=== PATIENT | male | born 1985 | race Caucasian/White ===

== ENCOUNTER 2023-01-03 16:45 | Emergency (ER) | payer OTHER ==
[2023-01-03 16:54] VITALS: BP 129/79
--- NOTE | 2023-01-03 16:54 | ED Upper Extremity ---
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 The tip of the finger was sliced off with the nail appearing broken. Denies sensory loss. Patient is able to move his fingers around. Patient is right-hand dominant. Allergies and Home Medications Allergies Coded Allergies: No Known Drug Allergies (Unverified , 01/03/23) Patient Home Medication List Home Medication List Reviewed: Yes Amoxicillin (Amoxicillin) 875 Mg Tablet, 875 MG PO BID Prescribed by: ROCCO GORDON MD on 01/03/23 5476 Review of Systems Constitutional: no symptoms reported Musculoskeletal: see HPI, other Physical Exam Vital Signs Vital Signs - First Documented 01/03/23 16:54 Temp 36.8 Pulse 74 Resp 16 B/P (MAP) 129/79 (96) Pulse Ox 99 O2 Delivery Room Air Capillary Refill : Height, Weight, BMI Height: '" Weight: lbs. oz. kg; BMI Method: General Appearance: WD/WN, no apparent distress Hand: normal ROM, Right, laceration (Palmar surface of the middle right finger tip appears sliced off. Fingernail appears broken but nailbed intact. Hand is greasy, dirty wound. Unrestricted ROM. N/V bundle intact), nail injury Neurologic/Tendon: normal sensation, normal motor functions Neurologic/Psychiatric: no motor/sensory deficits, alert, oriented x 3 Skin: normal color Progress/Results/Core Measures Results/Orders My Orders Orders - ROCCO GORDON MD Finger(S) (01/03/23 16:57) Dipht/Pertuss(Acell)/Tet Adult (Dipht/Pe (01/03/23 17:00) Amoxicillin/Clavulanate Tablet (Amoxicil (01/03/23 16:59) Amoxicillin/Clavulanate Tablet (Amoxicil (01/03/23 17:02) Dipht/Pertuss(Acell)/Tet Adult (Dipht/Pe (01/03/23 17:02) Bacitracin Ointment (Bacitracin Ointment (01/03/23 17:33) Medications Given in ED Current Medications Medications Dose Ordered Sig/Michelle Route Start Time Stop Time Status Last Admin Dose Admin Diphtheria/ Tetanus/Acell Pertussis 0.5 ml ONCE ONCE IM 01/03/23 17:00 01/03/23 17:01 DC 01/03/23 17:08 0.5 ML Vital Signs/I&O 01/03/23 16:54 Temp 36.8 Pulse 74 Resp 16 B/P (MAP) 129/79 (96) Pulse Ox 99 O2 Delivery Room Air Progress Progress Note : Progress Note RIGHT MIDDLE FINGER LACERATION: - XRAY RIGHT MIDDLE FINGER: Partial soft tissue amputation of the distal 3rd finger with no fractures identified. - Wound was irrigated and cleaned with sterile water and chlorhexidine, no foreign body seen, however wound is dirty with grease, and it was cleaned. Debridement of tissue done and Lido pressure dressing applied with antibi toic ointment. Digital block as well as direct injection into the wound done with 50% 1% lido and 50% lido with epi, for a total of 10 ml injected, with good pain control/ relief. Tube gauze placed after antibiotic ointment. - Augmentin 875mg STAT - Tdap vaccine given in ER - Prescription for Augmentin bid for 10 days - Advised Naproxen gel capsules 440mg every 12 hours for pain, with Tylenol 650mg every 4 hours. - Ice application - Wound care instructions with daily wound dressing advised - Follow up with PCP for wound care follow up in 7 days. -The patient was seen in the ED, and treated appropriately to presentation at a specific point in time. Patient is informed that there is a possibility that disease and illness can evolve and change in acuity rapidly or slowly after patient is discharged from the ER. Precautionary advice given to the patient for immediate return to ER if symptoms worsen or do not resolve, and to seek emergency care sooner rather than later. Pt also advised on the importance of PCP follow up and compliance with management and follow up plan with PCP and/or specialist, as this is part of the management plan. Pt verbally expressed understanding. Diagnostic Imaging Diagonstic Imaging: Xray Plain Films/CT/US/NM/MRI: hand Comments [facility]. [place], [place] NAME: YVAN LEE [facility] REC#: [id number] PT STATUS: REG ER : 1985 PHYSICIAN: ROCCO GORDON MD ADMIT DATE: 01/03/23/ER FS Draft Date of Exam:01/03/23 FINGER(S) INDICATION: Laceration to the 3rd finger EXAMINATION: Right 3rd finger 01/03/2023 FINDINGS: Four views of the hand and finger There is a soft tissue deformity with partial amputation of the distal tip of the 3rd finger which involves soft tissues only. No fractures or dislocations. No radiopaque foreign bodies. Subcutaneous air noted. IMPRESSION: 1. Partial soft tissue amputation of the distal 3rd finger with no fractures identified. Dictated on workstation # [id number] Dict: 01/03/23 1716 Trans: 01/03/23 1720 [facility] [id number] Interpreted by: CORWIN FLORES MD Electronically signed by: Departure Impression Primary Impression: Laceration of right middle finger Disposition: HOME, SELF-CARE Condition: Improved Departure-Patient Inst. Referrals: MUNIRA BRIZUELA DO (PCP) Primary Care Physician Patient Instructions: Wound Care (DC), SKIN AVULSION Add. Discharge Instructions: - Tdap vaccine given in ER - Prescription for Augmentin bid for 10 days - Advised Naproxen gel capsules 440mg every 12 hours for pain, with Tylenol 650mg every 4 hours. - Ice application - Wound care instructions with daily wound dressing advised - Follow up with PCP for wound care follow up in 7 days. All discharge instructions reviewed with patient and/or family. Voiced understanding. 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 Restrictions: Desk job allowed. ROCCO GORDON MD Jan 03, 2023 16:54
[2023-01-03] MEDS ORDERED: AMOXICILLIN/Clavulanate 875 MG TABLET PO STA (16:59)
[2023-01-03] MEDS ORDERED: Tetanus/Diphtheria/Pertussis (Acell) ADULT Vaccine 0.5 ML IM ONE ×2 (17:00→17:02)
[2023-01-03] MEDS ORDERED: AMOXICILLIN/Clavulanate 875 MG TABLET ONE (17:02)
--- NOTE | 2023-01-03 17:20 | Diagnostic Imaging Report ---
INDICATION: Laceration to the 3rd finger EXAMINATION: Right 3rd finger 01/03/2023 FINDINGS: Four views of the hand and finger There is a soft tissue deformity with partial amputation of the distal tip of the 3rd finger which involves soft tissues only. No fractures or dislocations. No radiopaque foreign bodies. Subcutaneous air noted. IMPRESSION: 1. Partial soft tissue amputation of the distal 3rd finger with no fractures identified. Dictated by: Dictated on workstation # [id number]
[2023-01-03] MEDS ORDERED: AMOX875T2 PO (17:32)
[2023-01-03] MEDS ORDERED: BACITRACIN OINTMENT 28 GM TUBE TOP STA (17:33)
== END 2023-01-03 18:13 | disposition home or self-care (01) ==
LOC: ER FS 16:47
DX: S61.212A Laceration without foreign body of right middle finger without damage to nail, initial encounter (principal); Z23 Encounter for immunization; W26.8XXA Contact with other sharp object(s), not elsewhere classified, initial encounter; Y99.0 Civilian activity done for income or pay
CPT/HCPCS: 73140; 90471; 90715